=== PATIENT | male | born 1970 | race Caucasian/White ===

== ENCOUNTER 2018-06-10 14:15 | Emergency (ER) | payer MEDICAID ==
[~2018-06-10] VITALS: Ht 172.7 cm; Wt 100.6 kg
[~2018-06-10 14:15] MED LIST: HYDR-3720 PO
[2018-06-10 14:19] VITALS: Ht 172.7 cm; Wt 100.6 kg
--- NOTE | 2018-06-10 16:20 | ERD ---
ER Documentation Chief Complaint Chief Complaint right hand and arm pain x 2 weeks, HPI 47-year-old male, right-handed, previously healthy, presents to the emergency department, complaining of painful lump in the second interdigital space for 1 week. The patient works as a [employer], he denies fever, no chills. No me dications taken at this time. ROS All systems reviewed and are negative except as per history of present illness. Medications Home Meds Active Scripts Acetaminophen* (Tylenol*) 325 Mg Tablet, 2 TAB PO Q6 PRN for PAIN AND OR ELEVATED TEMP, #20 TAB Prov:YORDY DANIEL MD 06/10/18 Ibuprofen* (Motrin*) 400 Mg Tab, 400 MG PO Q6H PRN for PAIN AND OR ELEVATED TEMP, #20 TAB Prov:YORDY DANIEL MD 06/10/18 Cephalexin* (Keflex*) 500 Mg Capsule, 500 MG PO BID for 7 Days, CAP Prov:YORDY DANIEL MD 06/10/18 Sulfamethoxazole/Trimethoprim* (Bactrim Ds* Tablet) 1 Each Tablet, 1 TAB PO BID, #14 TAB Prov:YORDY DANIEL MD 06/10/18 Hydrocodone Bit-Acetaminophen* ([place]*) 7.5-325 Tablet, 1 TAB PO Q4H PRN for PAIN, #20 TAB Prov:MICHAEL MEJIAS DO 04/02/15 Allergies Allergies: Coded Allergies: No Known Allergies (Verified Allergy, Mild, 02/08/10) PMhx/Soc Medical and Surgical Hx: pt denies Medical Hx, pt denies Surgical Hx History of Surgery: No Anesthesia Reaction: No Hx Neurological Disorder: No Hx Respiratory Disorders: No Hx Cardiac Disorders: No Hx Psychiatric Problems: No Hx Miscellaneous Medical Probl: No Hx Alcohol Use: No Hx Substance Use: No Hx Tobacco Use: No Smoking Status: Never smoker FmHx Family History: No diabetes, No coronary disease Physical Exam Vitals Vital Signs Date Temp Pulse Resp B/P (MAP) Pulse Ox O2 O2 Flow FiO2 Time Delivery Rate 06/10/18 89 18 140/88 99 Room Air 18:42 (105) 06/10/18 98.3 68 18 154/85 98 14:19 (108) Physical Exam Const: No acute distress Head: Atraumatic Eyes: Normal Conjunctiva ENT: Normal External Ears, Nose and Mouth. Neck: Full range of motion. No meningismus. Resp: Clear to auscultation bilaterally Cardio: Regular rate and rhythm, no murmurs Abd: Soft, non tender, non distended. Normal bowel sounds Skin: No petechiae or rashes Back: No midline or flank tenderness Ext: Right hand with 1 cm, erythematous lump in the second interdigital space, fluctuant, tender to palpation, no distal cyanosis, or edema Neur: Awake and alert Psych: Normal Mood and Affect Results 24 hrs Current Medications Medications Dose Sig/Yanique Start Time Status Last (Trade) Ordered Route PRN Stop Time Admin Dose Reason Admin Lidocaine 5 ml ONCE ONCE 06/10/18 DC (Xylocaine INFIL 16:30 06/10/18 1% (Mpf)) 16:31 Procedures/MDM Vital signs stable. Differential diagnosis considered include but not limited to: Cellulitis, abscess, lipoma, neoplasm. Low suspicion for acute systemic infection. Physical examination and clinical presentation consistent most likely with skin abscess. During the ED course the patient remained stable, no new complaints. The patient received treatment with incision and drainage of the area presenting overall improvement of the symptoms. Incision and drainage: Informed consent obtained, risk and benefits discussed with patient. Indication: Skin abscess Location: Right hand Area cleaned and sterilized with chlorhexidine solution, 2 mL of lidocaine without epi was infiltrated in the area of the incision. 5 mm incision was made with 11 blade scalpel abscess was drained with breaking up loculation with a hemostat. 1/4 packing was placed through the incision in the abscess cavity. The patient tolerated well the procedure without complications. Results and clinical impression discussed with the patient who agrees with management. The patient is stable to be treated outpatient and will be discharged home, some side effects of prescribed medications (headache, rash, nausea, vomiting, diarrhea, drowsiness, habituation, bleeding, hypertension, interactions with other medications) were reviewed. The patient was instructed to follow up with the primary care provider in the next 48h. If symptoms persist, worsen or new symptoms develop, then patient should return to the ED immediately. Instructions explained and given directly by me to the patient with acknowledgment and demonstrated understanding. Disclaimer: Inadvertent spelling and grammatical errors are likely due to EHR/dictation software use and do not reflect on the overall quality of patient care. Also, please note that the electronic time recorded on this note does not necessarily reflect the actual time of the patient encounter. Departure Diagnosis: Primary Impression: Abscess of hand, right Condition: Stable Additional Instructions: Muchas pasha por [facility] para arrieta servicio. Esperamos que en arrieta visita a la anderson de emergencia arrieta problema medico haya sido solucionado y que se sienta mucho mejor. Para estar seguros que arrieta mejoria sigue en proceso, le pedimos el favor de hacer jaime jaqueline de seguimiento medico con arrieta doctor primario en los proximos 2-4 kaufman. Lleve con usted estos documentos y las medicinas recetadas. Si eder sintomas empeoran, NO SE ESPERE, por favor regrese a anderson de emergencia INMEDIATAMENTE. En brandon que usted no tenga un mdico de atencin primaria: Llame al mdico o clnica comunitaria de referencia que aparece abajo saray las horas de consultorio para hacer jaime jaqueline para que le vean. CLINICAS: [facility] [phone] [facility] [phone] 75[address] [facility]. [facility] [phone] [address] [facility] [phone] [facility] [place]. [place] [phone] [facility]. [phone] YORDY GIL MD June 10, 2018 16:20
[2018-06-10] MEDS ORDERED: LIDOCAINE 1% (MPF) 5 ML VIAL INFIL ONE (16:30)
[2018-06-10] MEDS ORDERED: CEPH-443 PO (18:10)
[2018-06-10] MEDS ORDERED: ACET325T33 PO (18:10)
[2018-06-10] MEDS ORDERED: IBUP-1561 PO (18:10)
[2018-06-10] MEDS ORDERED: SULF1TAB31 PO (18:10)
[2018-06-10 18:42] VITALS: BP 140/88; PULSE 89; RESP 18
== END 2018-06-10 18:50 | disposition home or self-care (01) ==
LOC: FTE 14:15
DX: L02.511 Cutaneous abscess of right hand (principal)
CPT/HCPCS: 10060; Z7502; Z7610

== ENCOUNTER 2018-06-13 12:20 | Emergency (ER) | payer MEDICAID ==
[~2018-06-13] VITALS: Ht 160 cm; Wt 102.0 kg
[~2018-06-13 12:20] MED LIST changes: +ACET325T33 PO; +CEPH-443 PO; +IBUP-1561 PO; +SULF1TAB31 PO
[2018-06-13 12:36] VITALS: BP 128/59; PULSE 84; RESP 18; Ht 160 cm; Wt 102.0 kg
--- NOTE | 2018-06-13 13:31 | ERD ---
ER Documentation Chief Complaint Chief Complaint WOUND RECHECK HPI 47-year-old male, returns to the emergency department for wound check. The patient had an incision and drainage of an abscess on the right hand 3 days ago. The patient refers feeling better, no pain, no fever, good adherence to antibiotics. No side effects. ROS All systems reviewed and are negative except as per history of present illness. Medications Home Meds Active Scripts Acetaminophen* (Tylenol*) 325 Mg Tablet, 2 TAB PO Q6 PRN for PAIN AND OR ELEVATED TEMP, #20 TAB Prov:YORDY DANIEL MD 06/10/18 Ibuprofen* (Motrin*) 400 Mg Tab, 400 MG PO Q6H PRN for PAIN AND OR ELEVATED TEMP, #20 TAB Prov:YORDY DANIEL MD 06/10/18 Cephalexin* (Keflex*) 500 Mg Capsule, 500 MG PO BID for 7 Days, CAP Prov:YORDY DANIEL MD 06/10/18 Sulfamethoxazole/Trimethoprim* (Bactrim Ds* Tablet) 1 Each Tablet, 1 TAB PO BID, #14 TAB Prov:YORDY DANIEL MD 06/10/18 Hydrocodone Bit-Acetaminophen* ([place]*) 7.5-325 Tablet, 1 TAB PO Q4H PRN for PAIN, #20 TAB Prov:MICHAEL MEJIAS DO 04/02/15 Allergies Allergies: Coded Allergies: No Known Allergies (Verified Allergy, Mild, 02/08/10) PMhx/Soc Medical and Surgical Hx: pt denies Medical Hx History of Surgery: No Anesthesia Reaction: No Hx Neurological Disorder: No Hx Respiratory Disorders: No Hx Cardiac Disorders: No Hx Psychiatric Problems: No Hx Miscellaneous Medical Probl: No Hx Alcohol Use: No Hx Substance Use: No Hx Tobacco Use: No FmHx Family History: No diabetes, No coronary disease Physical Exam Vitals Vital Signs Date Temp Pulse Resp B/P (MAP) Pulse Ox O2 O2 Flow FiO2 Time Delivery Rate 06/13/18 98.6 84 18 128/59 98 12:36 (82) Physical Exam Const: No acute distress Head: Atraumatic Eyes: Normal Conjunctiva ENT: Normal External Ears, Nose and Mouth. Neck: Full range of motion. No meningismus. Resp: Clear to auscultation bilaterally Cardio: Regular rate and rhythm, no murmurs Abd: Soft, non tender, non distended. Normal bowel sounds Skin: No petechiae or rashes Back: No midline or flank tenderness Ext: Right hand: Wound clean, dry and intact. No cyanosis, or edema Neur: Awake and alert Psych: Normal Mood and Affect Procedures/MDM Status post incision and drainage of an abscess in the right hand 3 days ago. Adequate pain control, no fever, no chills, good compliance with medications no side effects. The patient was evaluated for infection and neurovascular compromise. The wound was clean and irrigated with normal saline and dressing applied. Patient is stable, with adequate healing process, okay to discharge home, medication adherence reinforced. some side effects of prescribed medications (headache, rash, nausea, vomiting, diarrhea, drowsiness, habituation, bleeding, hypertension, interactions with other medications) were reviewed. The patient was instructed to follow up with the primary care provider in the next 48h. If symptoms persist, worsen or new symptoms develop, then patient should return to the ED immediately. Instructions explained and given directly by me to the patient with acknowledgment and demonstrated understanding. Disclaimer: Inadvertent spelling and grammatical errors are likely due to EHR/dictation software use and do not reflect on the overall quality of patient care. Also, please note that the electronic time recorded on this note does not necessarily reflect the actual time of the patient encounter. Departure Diagnosis: Primary Impression: Visit for wound check Condition: Stable Additional Instructions: Muchas pasha por [facility] para arrieta servicio. Esperamos que en arrieta visita a la anderson de emergencia arrieta problema medico haya sido solucionado y que se sienta mucho mejor. Para estar seguros que arrieta mejoria sigue en proceso, le pedimos el favor de hacer jaime jaqueline de seguimiento medico con arrieta doctor primario en los proximos 2-4 kaufman. Lleve con usted estos documentos y las medicinas recetadas. Si eder sintomas empeoran, NO SE ESPERE, por favor regrese a anderson de emergencia INMEDIATAMENTE. En brandon que usted no tenga un mdico de atencin primaria: Llame al mdico o clnica comunitaria de referencia que aparece abajo saray las horas de consultorio para hacer jaime jaqueline para que le vean. CLINICAS: [facility] [phone] [address] [facility] [phone] [address] [facility] [phone] [address] [place] [phone] [place] [phone] [facility]. [phone] YORDY GIL MD June 13, 2018 13:30
== END 2018-06-13 14:24 | disposition home or self-care (01) ==
LOC: FTE 12:20
DX: Z48.01 Encounter for change or removal of surgical wound dressing (principal)
CPT/HCPCS: 99281

== ENCOUNTER 2018-06-20 12:49 | Emergency (ER) | payer MEDICAID ==
[~2018-06-20] VITALS: Ht 160 cm; Wt 103.9 kg
[2018-06-20 12:50] VITALS: BP 136/77; PULSE 68; RESP 14; Ht 160 cm; Wt 103.9 kg
--- NOTE | 2018-06-20 13:26 | ERD ---
ER Documentation Chief Complaint Chief Complaint Pt here for suture removal from R hand LAC HPI 47-year-old male presenting for suture removal of the right hand. Patient had laceration 1 week ago. Denies any numbness or tingling. Denies other medical problems. NKDA. Surgical history denies. Social history denies ROS All systems reviewed and are negative except as per history of present illness. Medications Home Meds Active Scripts Acetaminophen* (Tylenol*) 325 Mg Tablet, 2 TAB PO Q6 PRN for PAIN AND OR ELEV ATED TEMP, #20 TAB Prov:YORDY DANIEL MD 06/10/18 Ibuprofen* (Motrin*) 400 Mg Tab, 400 MG PO Q6H PRN for PAIN AND OR ELEVATED TEMP, #20 TAB Prov:YORDY DANIEL MD 06/10/18 Cephalexin* (Keflex*) 500 Mg Capsule, 500 MG PO BID for 7 Days, CAP Prov:YORDY DANIEL MD 06/10/18 Sulfamethoxazole/Trimethoprim* (Bactrim Ds* Tablet) 1 Each Tablet, 1 TAB PO BID, #14 TAB Prov:YORDY DANIEL MD 06/10/18 Hydrocodone Bit-Acetaminophen* ([place]*) 7.5-325 Tablet, 1 TAB PO Q4H PRN for PAIN, #20 TAB Prov:MICHAEL MEJIAS DO 04/02/15 Allergies Allergies: Coded Allergies: No Known Allergies (Verified Allergy, Mild, 02/08/10) PMhx/Soc History of Surgery: No Anesthesia Reaction: No Hx Neurological Disorder: No Hx Respiratory Disorders: No Hx Cardiac Disorders: No Hx Psychiatric Problems: No Hx Miscellaneous Medical Probl: No Hx Alcohol Use: No Hx Substance Use: No Hx Tobacco Use: No FmHx Family History: No diabetes, No coronary disease, No other Physical Exam Vitals Vital Signs Date Temp Pulse Resp B/P (MAP) Pulse Ox O2 O2 Flow FiO2 Time Delivery Rate 06/20/18 98.5 68 14 136/77 99 12:50 (96) Physical Exam GENERAL: The patient is well-appearing, well-nourished, in no acute distress CHEST: Clear to auscultation bilaterally. There are no rales, wheezes or rhonchi. HEART: Regular rate and rhythm. No murmurs, clicks, rubs or gallops. No S3 or S4. EXTREMITIES: Equal pulses bilaterally. There is no peripheral clubbing, cyanos is or edema. No focal swelling or erythema. Full range of motion. Grossly neurovascularly intact. NEUROLOGIC: Alert and oriented. Cranial nerves II through XII intact. Motor strength in all 4 extremities with 5 out of 5 strength. Sensation grossly in tact. SKIN: 3 sutures intact with no surrounding erythema or dehiscence of the wound. Wound healed appropriately. Procedures/MDM ER course: Sutures removed without complication. DM: 47-year-old male presenting for suture removal. Wound does not appear to be infected and healed appropriately. Patient is told symptoms change or worsen to return to ER. Patient is told to clean normally with soap and water. All questions answered at discharge Departure Diagnosis: Primary Impression: Encounter for removal of sutures Condition: Stable Patient Instructions: Suture Removal, No Complication Referrals: [facility] YOU HAVE RECEIVED A MEDICAL SCREENING EXAM AND THE RESULTS INDICATE THAT YOU DO NOT HAVE A CONDITION THAT REQUIRES URGENT TREATMENT IN THE EMERGENCY DEPARTMENT. FURTHER EVALUATION AND TREATMENT OF YOUR CONDITION CAN WAIT UNTIL YOU ARE SEEN IN YOUR DOCTORS OFFICE WITHIN THE NEXT 1-2 DAYS. IT IS YOUR RESPONSIBILITY TO MAKE AN APPOINTMENT FOR FOLOW-UP CARE. IF YOU HAVE A PRIMARY DOCTOR --you should call your primary doctor and schedule an appointment IF YOU DO NOT HAVE A PRIMARY DOCTOR YOU CAN CALL OUR PHYSICIAN REFERRAL HOTLINE AT IF YOU CAN NOT AFFORD TO SEE A PHYSICIAN YOU CAN CHOSE FROM THE FOLLOWING [facility] [address] [facility]. [facility] [address] [facility]. [facility] [address] [facility] [address] [facility]. [facility] [address] [facility]. [facility]. [address] Additional Instructions: FOLLOW UP WITH YOUR PRIMARY CARE PHYSICIAN TOMORROW.Return to this facility if you are not improving as expected. SHELLY BENITEZ PA-C June 20, 2018 13:26
== END 2018-06-20 13:45 | disposition home or self-care (01) ==
LOC: FTE 12:49
DX: Z48.02 Encounter for removal of sutures (principal)
CPT/HCPCS: 99281